=== PATIENT | female | born 1950 | race Two or more races ===

== ENCOUNTER 2017-11-17 07:39 | Outpatient (CLI) | payer OTHER ==
[~2017-11-17 07:39] MED LIST: ASA81 MG; SYNTHROID88 MCG
== END 2017-11-17 07:49 | disposition home or self-care (01) ==
LOC: TOM 07:39
DX: J98.4 Other disorders of lung (principal); K43.2 Incisional hernia without obstruction or gangrene

== ENCOUNTER → 2017-11-19 | Outpatient (CLI) | payer OTHER | END | disposition home or self-care (01) | LOC: NUCLEAR 10:00 | DX: M81.0 Age-related osteoporosis without current pathological fracture (principal) ==

== ENCOUNTER 2021-04-25 07:30 | Outpatient (CLI) | payer OTHER | END 2021-04-25 07:34 | disposition home or self-care (01) | LOC: NUCLEAR 07:30 | PROVIDERS: ATTEND Specialist | DX: C90.00 Multiple myeloma not having achieved remission (principal) | CPT/HCPCS: 78306; A9503 ==

== ENCOUNTER 2023-06-12 07:18 | Outpatient (CLI) | payer OTHER | END 2023-06-12 07:20 | disposition home or self-care (01) | LOC: NUCLEAR 07:18 | DX: M35.3 Polymyalgia rheumatica (principal) | CPT/HCPCS: 78315; A9503 ==

== ENCOUNTER 2024-04-15 07:39 | Emergency (ER) | payer OTHER ==
[~2024-04-15] VITALS: Ht 157.5 cm; Wt 56.7 kg
[2024-04-15] MEDS ORDERED: KETOROLAC TROMETHAMINE 60 MG VIAL IM ONE (08:45)
[2024-04-15] MEDS ORDERED: KETO10TA2 PO (09:24)
[2024-04-15 10:35] LABS: HEMATOCRIT 37.6 % (36.0-45.00); MEAN CELL VOLUME 85.9 fL (80.00-100.00); MEAN CORPUSCULAR HEMOGLOBIN 29.7 pg (27.00-32.0); MEAN CORPUSCULAR HGB CONC 34.5 g/dl (32.0-36.0); PLATELET COUNT 340 K/uL (150-450); RED BLOOD COUNT 4.37 M/uL (4.00-6.00); RED CELL DISTRIBUTION WIDTH 13.9 % (11.5-14.5)
[2024-04-15 11:30] LABS: INR < 0.93; PARTIAL THROMBOPLASTIN TIME 27.3 SECONDS (22.0-34.0); PROTHROMBIN TIME 10.2 SECONDS (9.0-11.5)
[2024-04-15 11:38] LABS: ALBUMIN 3.9 gm/dL (3.4-5.0); BILIRUBIN TOTAL 0.33 mg/dL (0.3-1.2); CALCIUM 9.2 mg/dL (8.5-10.1); CREATININE SERUM 0.76 mg/dL (0.55-1.02); GFR 74.6; GLOBULINA 3.9 G/DL (2.4-3.5); POTASSIUM 4.34 mEq/L (3.5-5.1); TOTAL PROTEIN 7.8 gm/dL (6.4-8.2)
[2024-04-16] MEDS ORDERED: PROTONIX40 MG PO (12:34)
[2024-04-16] MEDS ORDERED: NORVASC5 MG PO (12:34)
[2024-04-16] MEDS ORDERED: CYMBALTA30 MG PO (12:34)
[2024-04-16] MEDS ORDERED: VIVLODEX10 MG PO (12:35)
[2024-04-16] MEDS ORDERED: TYLENOL ARTHRI650 MG PO (12:35)
== END 2024-04-15 12:03 | disposition home or self-care (01) ==
LOC: ER 07:41
PROVIDERS: General Practice
DX: S52.122A Displaced fracture of head of left radius, initial encounter for closed fracture (principal); W19.XXXA Unspecified fall, initial encounter; Y93.89 Activity, other specified; Y92.098 Other place in other non-institutional residence as the place of occurrence of the external cause; Y99.8 Other external cause status; I10 Essential (primary) hypertension; E03.8 Other specified hypothyroidism
CPT/HCPCS: 36415; 71045; 73070; 73090; 73100; 93005; 96372; 99283; J1885

== ENCOUNTER 2024-04-20 05:45 | Day surgery (SDC) | payer OTHER ==
[2024-04-16 12:05] LABS: PH,URINE 7.5 (5.0-8.0); URINE APPEARANCE Cloudy; URINE BILIRRUBIN Negative (NEGATIVE); URINE BLOOD Negative; URINE COLOR Yellow; URINE GLUCOSE Negative (NEGATIVE); URINE KETONE Trace (NEGATIVE); URINE LEUKOCYTE Large; URINE NITRATE Positive; URINE PROTEIN Negative (NEGATIVE)
[2024-04-16 12:09] LABS: URINE EPITHELIAL CELLS 3.2 uL (0.0-38.8); URINE RBC 8.2 uL (0.0-20.8); URINE WBC 814.4 uL (0.0-23.2)
[2024-04-16 12:12] LABS: URINE BACTERIA > 9821.5 uL (0.0-1933)
[2024-04-16 12:36] VITALS: BP 128/73
[~2024-04-20 05:45] MED LIST changes: +CYMBALTA30 MG PO; +KETO10TA2 PO; +NORVASC5 MG PO; +PROTONIX40 MG PO; +TYLENOL ARTHRI650 MG PO; +VIVLODEX10 MG PO
[2024-04-20] MEDS ORDERED: CEFAZOLIN SODIUM 1,000 MG VIAL IV ONE (14:30)
[2024-04-20] MEDS ORDERED: DUI500 PO (14:56)
[2024-04-20] MEDS ORDERED: PERCOCET 5-3251 EACH PO (14:56)
[2024-04-20] MEDS ORDERED: MORPHINE SULFATE 4 MG/ML VIAL IV ONE ×2 (15:20→15:50)
== END 2024-04-20 17:25 | disposition home or self-care (01) ==
LOC: CIR.AMB 05:45
PROVIDERS: ATTEND Orthopaedic Surgery
DX: S52.123A Displaced fracture of head of unspecified radius, initial encounter for closed fracture (principal); S52.612A Displaced fracture of left ulna styloid process, initial encounter for closed fracture; E03.9 Hypothyroidism, unspecified
CPT/HCPCS: 25609; 25652; 20902; L8699